=== PATIENT | male | born 1950 | race Caucasian/White ===

== ENCOUNTER 2020-10-05 14:28 | Inpatient (IN) ==
[2020-10-05] MEDS ORDERED: Aspirin 81 MG TAB.CHEW PO ONE (14:43)
[2020-10-05] MEDS: Nitroglycerin 0.4 MG TAB.SUBL SL SCH (15:03)
[2020-10-05 15:10] LABS: Prothrombin Time 11.4 Seconds (9.4-12.1)
[2020-10-05 15:14] LABS: Activated Partial Thrombo Time 18.4 Seconds (26.0-36.0)
[2020-10-05 15:23] LABS: BUN/Creatinine Ratio 14 (6-26); Blood Urea Nitrogen 18 mg/dL (8-23); Calcium 9.4 mg/dL (8.6-10.3); Carbon Dioxide 25 mEq/L (23-29); Chloride 105 mEq/L (98-107); Glucose 116 mg/dL (70-105); Osmolality,Calculated 287 (280-300); Potassium 4.4 mEq/L (3.5-5.1); Sodium 137 mEq/L (136-145); eGFR For African Americans > 60 (> 60); eGFR For Non-African Americans 56 (> 60)
[2020-10-05 15:24] LABS: Red Cell Distribution Width 13.3 % (11.5-14.5)
[2020-10-05 15:26] LABS: Basophils # 0.1 K/mcL (0.0-0.2); Eosinophils # 0.4 K/mcL (0.0-0.6); Eosinophils % 5.2 %; Hemoglobin 13.6 g/dL (12.9-16.9); Immature Granulocytes % 0.2 % (0-4); Immature Platelets 4.4 % (1.1-6.1); Lymphocytes # 2.1 K/mcL (0.6-4.6); Lymphocytes % 25.6 %; Mean Corpuscular HGB Conc 32.4 g/dL (31.6-35.5); Mean Corpuscular Hemoglobin 32.6 pg (28.0-33.3); Mean Corpuscular Volume 100.7 fL (83.0-100.0); Mean Platelet Volume 10.3 fL (9.4-12.4); Monocytes # 0.9 K/mcL (0.0-1.3); Monocytes % 11.2 %; Platelet Count 195 K/mcL (140-400); Red Blood Count 4.17 M/mcL (4.19-5.50); Segmented Neutrophils % 56.8 %
[2020-10-05 15:33] LABS: Neutrophils # 4.5 K/mcL (1.6-8.9)
[2020-10-05] MEDS ORDERED: *HR* Heparin 5,000 UNIT/ML VIAL IVP ONE (15:33)
[2020-10-05] MEDS ORDERED: *HR* Heparin 5,000 UNIT/ML VIAL IVP PRN ×2 (15:33)
[2020-10-05 15:42] LABS: Heparin anti-factor XA UFH < 0.04 IU/mL (0.30-0.70)
[2020-10-05] MEDS ORDERED: Perflutren Lipid Microsphere 1.3 ML in 0.9 % Sodium Chloride 8.7 ML IVP PRN (16:01)
[2020-10-05] MEDS: Heparin 25,000UNIT/250ML 1/2NS 25,000 UNIT/250 ML IV.SOLN IVC SCH (16:30)
[2020-10-05] MEDS ORDERED: Nitroglycerin 0.4 MG TAB.SUBL SL PRN (16:41)
[2020-10-05] MEDS ORDERED: Acetaminophen 325 MG TABLET PO PRN (16:44)
[2020-10-05] MEDS ORDERED: Ondansetron 4 MG/2 ML VIAL IVP PRN (16:44)
[2020-10-05] MEDS ORDERED: Naloxone 0.4 MG/ML INJ IVP PRN (16:44)
[2020-10-05] MEDS: Famotidine 20 MG/2 ML VIAL IVP SCH (19:25)
[2020-10-05 20:59] LABS: Adenovirus Not Detected (Not Detect); Bordetella Pertussis Not Detected (Not Detect); Chlamydophila pneumoniae Not Detected (Not Detect); Coronavirus 229E Not Detected (Not Detect); Coronavirus HKU1 Not Detected (Not Detect); Coronavirus NL63 Not Detected (Not Detect); Coronavirus OC43 Not Detected (Not Detect); Human Metapneumovirus Not Detected (Not Detect); Human Rhinovirus/Enterovirus Not Detected (Not Detect); Influenza A Subtype 2009 H1 Not Detected (Not Detect); Influenza B Not Detected (Not Detect); Mycoplasma pneumoniae Not Detected (Not Detect); Parainfluenza Virus 1 Not Detected (Not Detect); Parainfluenza Virus 2 Not Detected (Not Detect); Parainfluenza Virus 3 Not Detected (Not Detect); Parainfluenza Virus 4 Not Detected (Not Detect); Respiratory Syncytial Virus Not Detected (Not Detect); SARS-CoV-2 Not Detected (Not Detect)
[2020-10-06] MEDS: Nitroglycerin 0.4 MG TAB.SUBL SL SCH ×2 (01:02→01:03)
[2020-10-06 04:57] LABS: Hematocrit 39.4 % (37.5-50.1); Hemoglobin 13.2 g/dL (12.9-16.9); Mean Corpuscular HGB Conc 33.5 g/dL (31.6-35.5); Mean Corpuscular Hemoglobin 34.1 pg (28.0-33.3); Mean Corpuscular Volume 101.8 fL (83.0-100.0); Mean Platelet Volume 10.3 fL (9.4-12.4); Platelet Count 198 K/mcL (140-400); Prothrombin Time 11.9 Seconds (9.4-12.1); Red Blood Count 3.87 M/mcL (4.19-5.50); Red Cell Distribution Width 13.3 % (11.5-14.5); White Blood Count 6.9 K/mcL (4.3-11.1)
[2020-10-06 04:59] LABS: BUN/Creatinine Ratio 15 (6-26); Blood Urea Nitrogen 17 mg/dL (8-23); Calcium 8.8 mg/dL (8.6-10.3); Carbon Dioxide 24 mEq/L (23-29); Chloride 107 mEq/L (98-107); Chol/HDL Ratio 2.7 (0-4.9); Cholesterol 131 mg/dL (< 200); Glucose 84 mg/dL (70-105); HDL Cholesterol 49 mg/dL (40-59); LDL Cholesterol,Calculated 59 mg/dL (< 100); Magnesium 2.1 mg/dL (1.6-2.6); Osmolality,Calculated 289 (280-300); Potassium 4.2 mEq/L (3.5-5.1); Sodium 139 mEq/L (136-145); Triglycerides 115 mg/dL (< 150); eGFR For African Americans > 60 (> 60); eGFR For Non-African Americans > 60 (> 60)
[2020-10-06 05:12] LABS: Activated Partial Thrombo Time 57.8 Seconds (26.0-36.0)
[2020-10-06] MEDS: Famotidine 20 MG/2 ML VIAL IVP SCH ×2 (05:24→17:19)
[2020-10-06] MEDS: Aspirin Enteric Coated 81 MG Tablet PO SCH (08:08)
[2020-10-06] MEDS: Budesonide/Formoterol 160/4.5 1 PUFF INH IH SCH ×2 (10:50→22:30)
[2020-10-06] MEDS: Loratadine 10 MG TABLET PO SCH (11:22)
[2020-10-06] MEDS: Multivit/Ca/Min/Fe/FA 1 TAB TABLET PO SCH (11:22)
[2020-10-06] MEDS: BuPROPion XL (24 HR) 150 MG TABLET PO SCH (11:22)
[2020-10-06] MEDS: Cholecalciferol (D-3) 1,000 UNIT (25MCG) TABLET PO SCH (11:22)
[2020-10-06] MEDS: Heparin 25,000UNIT/250ML 1/2NS 25,000 UNIT/250 ML IV.SOLN IVC SCH (14:15)
[2020-10-07 04:28] LABS: Hematocrit 40.7 % (37.5-50.1); Hemoglobin 13.3 g/dL (12.9-16.9); Mean Corpuscular HGB Conc 32.7 g/dL (31.6-35.5); Mean Corpuscular Hemoglobin 32.8 pg (28.0-33.3); Mean Corpuscular Volume 100.5 fL (83.0-100.0); Mean Platelet Volume 10.3 fL (9.4-12.4); Platelet Count 202 K/mcL (140-400); Red Blood Count 4.05 M/mcL (4.19-5.50); Red Cell Distribution Width 13.2 % (11.5-14.5); White Blood Count 8.5 K/mcL (4.3-11.1)
[2020-10-07 04:41] LABS: BUN/Creatinine Ratio 15 (6-26); Blood Urea Nitrogen 18 mg/dL (8-23); Calcium 9.1 mg/dL (8.6-10.3); Carbon Dioxide 24 mEq/L (23-29); Chloride 108 mEq/L (98-107); Glucose 93 mg/dL (70-105); Osmolality,Calculated 292 (280-300); Potassium 4.1 mEq/L (3.5-5.1); Sodium 140 mEq/L (136-145); eGFR For African Americans > 60 (> 60); eGFR For Non-African Americans > 60 (> 60)
[2020-10-07] MEDS: Famotidine 20 MG/2 ML VIAL IVP SCH ×2 (06:19→19:11)
[2020-10-07] MEDS: Budesonide/Formoterol 160/4.5 1 PUFF INH IH SCH ×2 (07:41→20:39)
[2020-10-07] MEDS: Cholecalciferol (D-3) 1,000 UNIT (25MCG) TABLET PO SCH (08:21)
[2020-10-07] MEDS: Aspirin Enteric Coated 81 MG Tablet PO SCH (08:21)
[2020-10-07] MEDS: Multivit/Ca/Min/Fe/FA 1 TAB TABLET PO SCH (08:21)
[2020-10-07] MEDS: Loratadine 10 MG TABLET PO SCH (08:21)
[2020-10-07] MEDS: BuPROPion XL (24 HR) 150 MG TABLET PO SCH (08:21)
[2020-10-07] MEDS: Heparin 25,000UNIT/250ML 1/2NS 25,000 UNIT/250 ML IV.SOLN IVC SCH (12:15)
[2020-10-08 04:45] LABS: Basophils # 0.1 K/mcL (0.0-0.2); Eosinophils # 0.5 K/mcL (0.0-0.6); Eosinophils % 6.4 %; Hematocrit 42.1 % (37.5-50.1); Hemoglobin 13.9 g/dL (12.9-16.9); Immature Granulocytes % 0.1 % (0-4); Lymphocytes # 2.4 K/mcL (0.6-4.6); Lymphocytes % 31.2 %; Mean Corpuscular Hemoglobin 33.3 pg (28.0-33.3); Mean Corpuscular Volume 100.7 fL (83.0-100.0); Mean Platelet Volume 10.2 fL (9.4-12.4); Monocytes # 0.8 K/mcL (0.0-1.3); Monocytes % 10.7 %; Platelet Count 210 K/mcL (140-400); Red Blood Count 4.18 M/mcL (4.19-5.50); Red Cell Distribution Width 13.3 % (11.5-14.5); Segmented Neutrophils % 50.6 %; White Blood Count 7.8 K/mcL (4.3-11.1)
[2020-10-08 05:04] LABS: BUN/Creatinine Ratio 14 (6-26); Blood Urea Nitrogen 18 mg/dL (8-23); Calcium 9.6 mg/dL (8.6-10.3); Carbon Dioxide 23 mEq/L (23-29); Chloride 107 mEq/L (98-107); Glucose 103 mg/dL (70-105); Osmolality,Calculated 290 (280-300); Sodium 139 mEq/L (136-145); eGFR For African Americans > 60 (> 60); eGFR For Non-African Americans 56 (> 60)
[2020-10-08] MEDS: Famotidine 20 MG/2 ML VIAL IVP SCH (05:51)
[2020-10-08] MEDS: Cholecalciferol (D-3) 1,000 UNIT (25MCG) TABLET PO SCH (08:14)
[2020-10-08] MEDS: BuPROPion XL (24 HR) 150 MG TABLET PO SCH (08:14)
[2020-10-08] MEDS: Multivit/Ca/Min/Fe/FA 1 TAB TABLET PO SCH (08:14)
[2020-10-08] MEDS: Loratadine 10 MG TABLET PO SCH (08:14)
[2020-10-08] MEDS: Aspirin Enteric Coated 81 MG Tablet PO SCH (08:14)
[2020-10-08] MEDS: Budesonide/Formoterol 160/4.5 1 PUFF INH IH SCH ×2 (08:26→21:45)
[2020-10-08] MEDS: Heparin 25,000UNIT/250ML 1/2NS 25,000 UNIT/250 ML IV.SOLN IVC SCH (10:41)
[2020-10-08] MEDS ORDERED: 0.9 % Sodium Chloride 1,000 ML ONE ×3 (12:50→16:07)
[2020-10-08] MEDS ORDERED: ISOVUE-370 200 ML INFUS..BTL ONE ×2 (12:50→14:23)
[2020-10-08] MEDS ORDERED: *HR* Heparin 10,000 UNIT/10 ML VIAL ONE (12:50)
[2020-10-08] MEDS ORDERED: Heparin 1,000 UNITS/500 mL 500 ML ONE (12:50)
[2020-10-08] MEDS ORDERED: Nitroglycerin 1,000 MCG/10 ML VIAL IV ONE (12:50)
[2020-10-08] MEDS ORDERED: *HR* Midazolam HCl 2 MG/2 ML VIAL ONE (13:39)
[2020-10-08] MEDS ORDERED: *HR* FentaNYL (PF) 100 MCG/2 ML VIAL ONE (13:40)
[2020-10-08] MEDS ORDERED: Ondansetron 4 MG/2 ML VIAL ONE (13:43)
[2020-10-08] MEDS ORDERED: Tirofiban 12.5 MG/250ML 12.5 MG/250 ML BAG ONE (14:00)
[2020-10-08] MEDS ORDERED: *HR* Ticagrelor 90 MG TABLET ONE (14:35)
[2020-10-08] MEDS ORDERED: Tirofiban 12.5 MG/250ML 12.5 MG/250 ML BAG IVC SCH (14:45)
[2020-10-08] MEDS ORDERED: 0.9 % Sodium Chloride 500 ML IVC ONE (20:28)
[2020-10-08] MEDS: *HR* Ticagrelor 90 MG TABLET PO SCH (20:48)
[2020-10-09] MEDS: Budesonide/Formoterol 160/4.5 1 PUFF INH IH SCH (07:54)
[2020-10-09 08:08] VITALS: BP 107/72
[2020-10-09 08:09] LABS: Hematocrit 37.6 % (37.5-50.1)
[2020-10-09 08:11] LABS: Hemoglobin 12.3 g/dL (12.9-16.9); Mean Corpuscular HGB Conc 32.7 g/dL (31.6-35.5); Mean Corpuscular Hemoglobin 33.5 pg (28.0-33.3); Mean Corpuscular Volume 102.5 fL (83.0-100.0); Mean Platelet Volume 10.3 fL (9.4-12.4); Platelet Count 184 K/mcL (140-400); Red Blood Count 3.67 M/mcL (4.19-5.50); Red Cell Distribution Width 13.8 % (11.5-14.5); White Blood Count 9.6 K/mcL (4.3-11.1)
[2020-10-09] MEDS: Aspirin Enteric Coated 81 MG Tablet PO SCH (08:24)
[2020-10-09] MEDS: Multivit/Ca/Min/Fe/FA 1 TAB TABLET PO SCH (08:24)
[2020-10-09] MEDS: Cholecalciferol (D-3) 1,000 UNIT (25MCG) TABLET PO SCH (08:24)
[2020-10-09] MEDS: *HR* Ticagrelor 90 MG TABLET PO SCH (08:24)
[2020-10-09] MEDS: Loratadine 10 MG TABLET PO SCH (08:24)
[2020-10-09] MEDS: BuPROPion XL (24 HR) 150 MG TABLET PO SCH (08:24)
[2020-10-09 08:28] LABS: BUN/Creatinine Ratio 13 (6-26); Blood Urea Nitrogen 16 mg/dL (8-23); Carbon Dioxide 23 mEq/L (23-29); Chloride 111 mEq/L (98-107); Glucose 89 mg/dL (70-105); Osmolality,Calculated 289 (280-300); Potassium 4.5 mEq/L (3.5-5.1); Sodium 139 mEq/L (136-145); eGFR For African Americans > 60 (> 60); eGFR For Non-African Americans 58 (> 60)
[2020-10-09 09:19] LABS: Basophils # 0.2 K/mcL (0.0-0.2); Eosinophils # 0.2 K/mcL (0.0-0.6); Lymphocytes # 1.3 K/mcL (0.6-4.6); Neutrophils # 6.9 K/mcL (1.6-8.9)
[2020-10-09 09:20] LABS: Platelet Estimate Normal (Normal); Reactive Lymphocytes Present (Not Present); Toxic Vacuolation Present (Not Present)
[2020-10-09] MEDS ORDERED: *HR* Heparin 5,000 UNIT/ML VIAL SQ SCH (14:00)
== END 2020-10-09 10:15 | disposition home or self-care (01) | DRG 247 ==
LOC: EMEROOARM 14:28 → 2ANU 14:28 → SUATTDRO 16:11 → 2ANU 17:09
PROVIDERS: ADMIT Student in an Organized Health Care Education/Training Program; ATTEND Family Medicine

== ENCOUNTER 2020-10-29 13:56 | Observation (INO) ==
[2020-10-29 14:48] LABS: Basophils # 0.1 K/mcL (0.0-0.2); Eosinophils # 0.6 K/mcL (0.0-0.6); Eosinophils % 5.3 %; Hematocrit 42.8 % (37.5-50.1); Hemoglobin 14.4 g/dL (12.9-16.9); Immature Granulocytes % 0.3 % (0-4); Lymphocytes # 2.4 K/mcL (0.6-4.6); Lymphocytes % 22.8 %; Mean Corpuscular HGB Conc 33.6 g/dL (31.6-35.5); Mean Corpuscular Hemoglobin 33.5 pg (28.0-33.3); Mean Corpuscular Volume 99.5 fL (83.0-100.0); Mean Platelet Volume 9.8 fL (9.4-12.4); Monocytes % 9.4 %; Neutrophils # 6.3 K/mcL (1.6-8.9); Nucleated Red Blood Cells 0.2 /100 WBC (0); Platelet Count 262 K/mcL (140-400); Red Cell Distribution Width 13.3 % (11.5-14.5); Segmented Neutrophils % 61.2 %; White Blood Count 10.3 K/mcL (4.3-11.1)
[2020-10-29 15:10] LABS: BUN/Creatinine Ratio 11 (6-26); Blood Urea Nitrogen 17 mg/dL (8-23); Calcium 10.3 mg/dL (8.6-10.3); Carbon Dioxide 22 mEq/L (23-29); Chloride 106 mEq/L (98-107); Glucose 88 mg/dL (70-105); Osmolality,Calculated 289 (280-300); Potassium 4.1 mEq/L (3.5-5.1); Sodium 139 mEq/L (136-145); Troponin I < 0.03 ng/mL (< 0.04); eGFR For African Americans 56 (> 60); eGFR For Non-African Americans 46 (> 60)
[2020-10-29] MEDS ORDERED: Nitroglycerin 0.4 MG TAB.SUBL SL PRN (17:58)
[2020-10-29] MEDS ORDERED: Naloxone 0.4 MG/ML INJ IVP PRN (18:04)
[2020-10-29] MEDS ORDERED: Ondansetron 4 MG/2 ML VIAL IVP PRN (18:04)
[2020-10-29] MEDS ORDERED: Acetaminophen 325 MG TABLET PO PRN (18:04)
[2020-10-29] MEDS: Budesonide/Formoterol 160/4.5 1 PUFF INH IH SCH (19:49)
[2020-10-29] MEDS: *HR* Ticagrelor 90 MG TABLET PO SCH (20:20)
[2020-10-30 01:27] LABS: Basophils # 0.1 K/mcL (0.0-0.2); Basophils % 1.1 %; Eosinophils # 0.6 K/mcL (0.0-0.6); Hematocrit 40.7 % (37.5-50.1); Hemoglobin 13.7 g/dL (12.9-16.9); Immature Granulocytes % 0.2 % (0-4); Lymphocytes # 2.5 K/mcL (0.6-4.6); Lymphocytes % 28.1 %; Mean Corpuscular HGB Conc 33.7 g/dL (31.6-35.5); Mean Corpuscular Hemoglobin 33.9 pg (28.0-33.3); Mean Corpuscular Volume 100.7 fL (83.0-100.0); Mean Platelet Volume 9.7 fL (9.4-12.4); Monocytes # 0.9 K/mcL (0.0-1.3); Monocytes % 10.5 %; Neutrophils # 4.7 K/mcL (1.6-8.9); Nucleated Red Blood Cells 0.2 /100 WBC (0); Platelet Count 235 K/mcL (140-400); Red Blood Count 4.04 M/mcL (4.19-5.50); Red Cell Distribution Width 13.3 % (11.5-14.5); Segmented Neutrophils % 53.1 %; White Blood Count 8.9 K/mcL (4.3-11.1)
[2020-10-30 01:31] LABS: INR 1.1
[2020-10-30 01:47] LABS: Albumin 4.2 g/dL (3.5-5.7); Albumin/Globulin Ratio 1.5 (1.1-2.2); Bilirubin,Total 0.9 mg/dL (0.3-1.0); Calcium 10.3 mg/dL (8.6-10.3); Globulin 2.8 g/dL (2.4-3.5); Potassium 4.2 mEq/L (3.5-5.1)
[2020-10-30] MEDS: Budesonide/Formoterol 160/4.5 1 PUFF INH IH SCH ×2 (07:51→19:24)
[2020-10-30] MEDS: Cholecalciferol (D-3) 1,000 UNIT (25MCG) TABLET PO SCH (08:16)
[2020-10-30] MEDS: *HR* Ticagrelor 90 MG TABLET PO SCH ×2 (08:17→20:18)
[2020-10-30] MEDS: Loratadine 10 MG TABLET PO SCH (08:17)
[2020-10-30] MEDS: BuPROPion XL (24 HR) 150 MG TABLET PO SCH (08:17)
[2020-10-30] MEDS: Finasteride 5 MG TABLET PO SCH (08:19)
[2020-10-30] MEDS: Aspirin Enteric Coated 81 MG Tablet PO SCH (08:19)
[2020-10-30] MEDS: 0.9 % Sodium Chloride 1,000 ML IVC SCH (09:38)
[2020-10-30] MEDS: Multivit/Ca/Min/Fe/FA 1 TAB TABLET PO SCH (09:46)
[2020-10-30] MEDS: *HR* Heparin 5,000 UNIT/ML VIAL SQ SCH (17:52)
[2020-10-31] MEDS: 0.9 % Sodium Chloride 1,000 ML IVC SCH (04:05)
[2020-10-31] MEDS: *HR* Heparin 5,000 UNIT/ML VIAL SQ SCH (05:54)
[2020-10-31 06:06] LABS: Hematocrit 39.2 % (37.5-50.1); Hemoglobin 12.6 g/dL (12.9-16.9); Mean Corpuscular HGB Conc 32.1 g/dL (31.6-35.5); Mean Corpuscular Hemoglobin 33.2 pg (28.0-33.3); Mean Corpuscular Volume 103.4 fL (83.0-100.0); Mean Platelet Volume 10.2 fL (9.4-12.4); Platelet Count 203 K/mcL (140-400); Red Blood Count 3.79 M/mcL (4.19-5.50); Red Cell Distribution Width 13.3 % (11.5-14.5); White Blood Count 6.8 K/mcL (4.3-11.1)
[2020-10-31 06:28] LABS: Albumin 3.9 g/dL (3.5-5.7); Albumin/Globulin Ratio 1.6 (1.1-2.2); Bilirubin,Total 0.7 mg/dL (0.3-1.0); Calcium 9.5 mg/dL (8.6-10.3); Globulin 2.5 g/dL (2.4-3.5); Potassium 4.2 mEq/L (3.5-5.1); Total Protein 6.4 g/dL (6.4-8.9)
[2020-10-31] MEDS: Budesonide/Formoterol 160/4.5 1 PUFF INH IH SCH (07:42)
[2020-10-31] MEDS: BuPROPion XL (24 HR) 150 MG TABLET PO SCH (08:19)
[2020-10-31] MEDS: Multivit/Ca/Min/Fe/FA 1 TAB TABLET PO SCH (08:19)
[2020-10-31] MEDS: Cholecalciferol (D-3) 1,000 UNIT (25MCG) TABLET PO SCH (08:19)
[2020-10-31] MEDS: Aspirin Enteric Coated 81 MG Tablet PO SCH (08:19)
[2020-10-31] MEDS: Finasteride 5 MG TABLET PO SCH (08:19)
[2020-10-31] MEDS: Loratadine 10 MG TABLET PO SCH (08:20)
[2020-10-31 14:45] LABS: BUN/Creatinine Ratio 14 (6-26); Blood Urea Nitrogen 19 mg/dL (8-23); Calcium 9.1 mg/dL (8.6-10.3); Carbon Dioxide 23 mEq/L (23-29); Chloride 110 mEq/L (98-107); Glucose 77 mg/dL (70-105); Osmolality,Calculated 293 (280-300); Potassium 3.9 mEq/L (3.5-5.1); Sodium 141 mEq/L (136-145); eGFR For African Americans > 60 (> 60); eGFR For Non-African Americans 52 (> 60)
[2020-10-31 15:25] VITALS: BP 122/69
== END 2020-10-31 16:29 | disposition home or self-care (01) ==
LOC: EMEROOARM 13:56 → 3BNU 13:56 → SUATTDRO 17:27 → 3BNU 17:55
PROVIDERS: ADMIT Internal Medicine; ATTEND Registered Nurse

== ENCOUNTER 2021-03-25 12:35 | Inpatient (IN) ==
[2021-03-25 15:26] LABS: Basophils # 0.1 K/mcL (0.0-0.2); Basophils % 0.8 %; Eosinophils # 0.3 K/mcL (0.0-0.6); Eosinophils % 3.8 %; Hematocrit 43.2 % (37.5-50.1); Hemoglobin 14.3 g/dL (12.9-16.9); Immature Granulocytes % 0.1 % (0-4); Lymphocytes # 1.8 K/mcL (0.6-4.6); Lymphocytes % 23.8 %; Mean Corpuscular HGB Conc 33.1 g/dL (31.6-35.5); Mean Corpuscular Hemoglobin 31.8 pg (28.0-33.3); Mean Platelet Volume 10.1 fL (9.4-12.4); Monocytes # 0.9 K/mcL (0.0-1.3); Monocytes % 11.2 %; Neutrophils # 4.7 K/mcL (1.6-8.9); Platelet Count 241 K/mcL (140-400); Red Cell Distribution Width 13.7 % (11.5-14.5); Segmented Neutrophils % 60.3 %; White Blood Count 7.7 K/mcL (4.3-11.1)
[2021-03-25 15:35] LABS: ABG Base Excess 3 mEq/L (-2 to 3); ABG HCO3 27 mEq/L (21-27); ABG Oxygen Saturation 94 % (95-98); ABG PCO2 39 mmHg (35-45); ABG PH 7.46 pH Units (7.32-7.45); ABG PO2 66 mmHg (85-104); ABG TCO2 29 mEq/L (20-26)
[2021-03-25 16:01] LABS: BUN/Creatinine Ratio 13 (6-26); Blood Urea Nitrogen 17 mg/dL (8-23); Calcium 11.8 mg/dL (8.6-10.3); Carbon Dioxide 27 mEq/L (23-29); Chloride 104 mEq/L (98-107); Glucose 99 mg/dL (70-105); Osmolality,Calculated 290 (280-300); Potassium 4.4 mEq/L (3.5-5.1); Sodium 139 mEq/L (136-145); Troponin I < 0.03 ng/mL (< 0.04); eGFR For African Americans > 60 (> 60); eGFR For Non-African Americans 57 (> 60)
[2021-03-25 16:25] LABS: INR 1.1; Prothrombin Time 12.4 Seconds (9.4-12.1)
[2021-03-25 16:27] LABS: Activated Partial Thrombo Time 29.5 Seconds (26.0-36.0)
[2021-03-25 16:46] LABS: Bilirubin,Urine Negative (Negative); Blood,Urine Negative (Negative); Clarity,Urine Ex.Turbid (Clear); Color,Urine Yellow (Yellow); Glucose,Urine (UA) Normal (Normal); Ketones,Urine Negative (Negative); Leukocyte Esterase,Urine Negative (Negative); Nitrite,Urine Negative (Negative); Protein,Urine Trace mg/dL (Neg-Trace); Specific Gravity,Urine 1.015 (1.010-1.025); Urobilinogen,Urine Normal (Normal)
[2021-03-25 16:52] LABS: Amorphous Sediment,Urine Many per hpf (None-Few); WBC,Urine 0-3 per hpf (0-3)
[2021-03-25 16:53] LABS: Granular Casts,Urine Few per lpf (None Seen)
[2021-03-25] MEDS ORDERED: Ondansetron 4 MG/2 ML VIAL IVP PRN (17:16)
[2021-03-25] MEDS ORDERED: Naloxone 0.4 MG/ML INJ IVP PRN (17:16)
[2021-03-25] MEDS ORDERED: Aspirin 81 MG TAB.CHEW PO STA ×3 (17:39→19:50)
[2021-03-25] MEDS: Budesonide/Formoterol 160/4.5 1 PUFF INH IH SCH (19:55)
[2021-03-26 02:48] LABS: Basophils # 0.1 K/mcL (0.0-0.2); Eosinophils # 0.4 K/mcL (0.0-0.6); Eosinophils % 5.5 %; Hematocrit 45.2 % (37.5-50.1); Hemoglobin 14.5 g/dL (12.9-16.9); Immature Granulocytes % 0.3 % (0-4); Lymphocytes # 2.2 K/mcL (0.6-4.6); Mean Corpuscular HGB Conc 32.1 g/dL (31.6-35.5); Mean Corpuscular Hemoglobin 31.7 pg (28.0-33.3); Mean Corpuscular Volume 98.7 fL (83.0-100.0); Mean Platelet Volume 9.8 fL (9.4-12.4); Monocytes # 0.8 K/mcL (0.0-1.3); Monocytes % 11.8 %; Neutrophils # 3.4 K/mcL (1.6-8.9); Platelet Count 216 K/mcL (140-400); Red Blood Count 4.58 M/mcL (4.19-5.50); Red Cell Distribution Width 13.9 % (11.5-14.5); Segmented Neutrophils % 49.4 %; White Blood Count 6.9 K/mcL (4.3-11.1)
[2021-03-26 02:57] LABS: Calcium 11.4 mg/dL (8.6-10.3); Magnesium 2.2 mg/dL (1.6-2.6); Potassium 4.3 mEq/L (3.5-5.1)
[2021-03-26] MEDS ORDERED: Regadenoson 0.4 MG/5 ML SYRINGE IVP ONE (07:16)
[2021-03-26] MEDS: Budesonide/Formoterol 160/4.5 1 PUFF INH IH SCH ×2 (07:41→19:41)
[2021-03-26] MEDS: Cholecalciferol (D-3) 1,000 UNIT (25MCG) TABLET PO SCH (10:54)
[2021-03-26] MEDS: BuPROPion XL (24 HR) 150 MG TABLET PO SCH (10:54)
[2021-03-26] MEDS: Finasteride 5 MG TABLET PO SCH (10:54)
[2021-03-26] MEDS: Loratadine 10 MG TABLET PO SCH (10:54)
[2021-03-26] MEDS: Multivit/Ca/Min/Fe/FA 1 TAB TABLET PO SCH (10:54)
[2021-03-26] MEDS: Aspirin Enteric Coated 81 MG Tablet PO SCH (10:54)
[2021-03-26] MEDS: Isosorbide MONOnitrate (24 HR) 30 MG TAB.ER.24H PO SCH (14:43)
[2021-03-27 06:55] LABS: Basophils % 0.5 %; Eosinophils # 0.3 K/mcL (0.0-0.6); Eosinophils % 4.1 %; Hematocrit 41.8 % (37.5-50.1); Hemoglobin 13.7 g/dL (12.9-16.9); Immature Granulocytes % 0.1 % (0-4); Lymphocytes # 2.1 K/mcL (0.6-4.6); Lymphocytes % 26.2 %; Mean Corpuscular HGB Conc 32.8 g/dL (31.6-35.5); Mean Corpuscular Volume 97.7 fL (83.0-100.0); Mean Platelet Volume 10.3 fL (9.4-12.4); Monocytes # 0.9 K/mcL (0.0-1.3); Monocytes % 11.8 %; Neutrophils # 4.5 K/mcL (1.6-8.9); Platelet Count 214 K/mcL (140-400); Red Blood Count 4.28 M/mcL (4.19-5.50); Red Cell Distribution Width 13.9 % (11.5-14.5); Segmented Neutrophils % 57.3 %; White Blood Count 7.9 K/mcL (4.3-11.1)
[2021-03-27 07:18] LABS: Calcium 9.8 mg/dL (8.6-10.3); Potassium 3.9 mEq/L (3.5-5.1)
[2021-03-27] MEDS: Budesonide/Formoterol 160/4.5 1 PUFF INH IH SCH ×2 (07:49→20:08)
[2021-03-27] MEDS: Cholecalciferol (D-3) 1,000 UNIT (25MCG) TABLET PO SCH (08:17)
[2021-03-27] MEDS: Finasteride 5 MG TABLET PO SCH (08:17)
[2021-03-27] MEDS: Aspirin Enteric Coated 81 MG Tablet PO SCH (08:17)
[2021-03-27] MEDS: Multivit/Ca/Min/Fe/FA 1 TAB TABLET PO SCH (08:17)
[2021-03-27] MEDS: Loratadine 10 MG TABLET PO SCH (08:18)
[2021-03-27] MEDS: BuPROPion XL (24 HR) 150 MG TABLET PO SCH (08:18)
[2021-03-27] MEDS: Isosorbide MONOnitrate (24 HR) 30 MG TAB.ER.24H PO SCH (08:18)
[2021-03-27] MEDS: 0.9 % Sodium Chloride 1,000 ML IVC SCH ×2 (09:11→22:37)
[2021-03-27 13:51] LABS: Calcium 9.3 mg/dL (8.6-10.3); Potassium 4.4 mEq/L (3.5-5.1)
[2021-03-28 06:40] LABS: Calcium 8.7 mg/dL (8.6-10.3); Phosphorous 2.4 mg/dL (2.7-4.5); Potassium 4.2 mEq/L (3.5-5.1)
[2021-03-28] MEDS: Budesonide/Formoterol 160/4.5 1 PUFF INH IH SCH (07:30)
[2021-03-28 07:45] VITALS: BP 104/66; PULSE 64; TEMP 98.2; O2SAT 92
[2021-03-28] MEDS: Multivit/Ca/Min/Fe/FA 1 TAB TABLET PO SCH (07:56)
[2021-03-28] MEDS: Cholecalciferol (D-3) 1,000 UNIT (25MCG) TABLET PO SCH (07:56)
[2021-03-28] MEDS: Finasteride 5 MG TABLET PO SCH (07:56)
[2021-03-28] MEDS: BuPROPion XL (24 HR) 150 MG TABLET PO SCH (07:56)
[2021-03-28] MEDS: Loratadine 10 MG TABLET PO SCH (07:57)
[2021-03-28] MEDS: Aspirin Enteric Coated 81 MG Tablet PO SCH (07:57)
[2021-03-28] MEDS: Isosorbide MONOnitrate (24 HR) 30 MG TAB.ER.24H PO SCH (08:12)
== END 2021-03-28 09:55 | disposition home or self-care (01) | DRG 303 ==
LOC: 3BNU 12:35 → EMEROOARM 12:35 → SUATTDRO 17:33 → 3BNU 18:01 → SUATTDRO 03-26 16:30
PROVIDERS: ADMIT Pharmacist; ATTEND Internal Medicine

== ENCOUNTER 2021-04-10 08:56 | Inpatient (IN) ==
[2021-04-10] MEDS ORDERED: Aspirin 81 MG TAB.CHEW PO ONE (09:06)
[2021-04-10] MEDS ORDERED: Pantoprazole 40 MG VIAL IVP ONE ×2 (09:06→13:21)
[2021-04-10] MEDS ORDERED: 0.9 % Sodium Chloride 500 ML IVC ONE (09:06)
[2021-04-10 10:24] LABS: Basophils # 0.1 K/mcL (0.0-0.2); Basophils % 0.8 %; Eosinophils # 0.3 K/mcL (0.0-0.6); Eosinophils % 2.9 %; Hematocrit 29.4 % (37.5-50.1); Hemoglobin 9.2 g/dL (12.9-16.9); Immature Granulocytes % 0.5 % (0-4); Lymphocytes # 2.1 K/mcL (0.6-4.6); Lymphocytes % 19.5 %; Mean Corpuscular HGB Conc 31.3 g/dL (31.6-35.5); Mean Corpuscular Hemoglobin 31.7 pg (28.0-33.3); Mean Corpuscular Volume 101.4 fL (83.0-100.0); Mean Platelet Volume 10.8 fL (9.4-12.4); Monocytes # 0.9 K/mcL (0.0-1.3); Monocytes % 8.3 %; Neutrophils # 7.3 K/mcL (1.6-8.9); Nucleated Red Blood Cells 0.3 /100 WBC (0); Platelet Count 178 K/mcL (140-400); Red Cell Distribution Width 13.2 % (11.5-14.5); White Blood Count 10.8 K/mcL (4.3-11.1)
[2021-04-10 10:24] LABS: Adenovirus Not Detected (Not Detect); Coronavirus 229E Not Detected (Not Detect); Coronavirus HKU1 Not Detected (Not Detect); Coronavirus NL63 Not Detected (Not Detect); Coronavirus OC43 Not Detected (Not Detect); Human Metapneumovirus Not Detected (Not Detect); Human Rhinovirus/Enterovirus Not Detected (Not Detect); Influenza A Subtype 2009 H1 Not Detected (Not Detect); Influenza B Not Detected (Not Detect); Parainfluenza Virus 1 Not Detected (Not Detect); Parainfluenza Virus 2 Not Detected (Not Detect); Parainfluenza Virus 3 Not Detected (Not Detect); Parainfluenza Virus 4 Not Detected (Not Detect); SARS-CoV-2 Not Detected (Not Detect)
[2021-04-10 10:25] LABS: Bordetella Pertussis Not Detected (Not Detect); Chlamydophila pneumoniae Not Detected (Not Detect); Mycoplasma pneumoniae Not Detected (Not Detect); Respiratory Syncytial Virus Not Detected (Not Detect)
[2021-04-10] MEDS ORDERED: Simethicone 80 MG TAB.CHEW PO PRN (10:29)
[2021-04-10 10:31] LABS: INR 1.2; Prothrombin Time 13.8 Seconds (9.4-12.1)
[2021-04-10 10:34] LABS: Activated Partial Thrombo Time 27.6 Seconds (26.0-36.0)
[2021-04-10 10:46] LABS: Alanine Aminotransferase 21 Units/L (7-52); Albumin 3.3 g/dL (3.5-5.7); Albumin/Globulin Ratio 1.7 (1.1-2.2); Aspartate Amino Transferase 15 Units/L (13-39); BUN/Creatinine Ratio 40 (6-26); Bilirubin,Direct 0.1 mg/dL (0.0-0.2); Bilirubin,Indirect 0.6 mg/dL (0.0-1.0); Bilirubin,Total 0.7 mg/dL (0.3-1.0); Blood Urea Nitrogen 60 mg/dL (8-23); Calcium 8.1 mg/dL (8.6-10.3); Carbon Dioxide 23 mEq/L (23-29); Chloride 114 mEq/L (98-107); Glucose 89 mg/dL (70-105); Lipase 29 Units/L (11-82); Osmolality,Calculated 308 (280-300); Potassium 5.8 mEq/L (3.5-5.1); Sodium 141 mEq/L (136-145); Total Protein 5.3 g/dL (6.4-8.9); Troponin I < 0.03 ng/mL (< 0.04); eGFR For African Americans 56 (> 60); eGFR For Non-African Americans 46 (> 60)
[2021-04-10 11:27] LABS: Alkaline Phosphatase 57 Units/L (34-104)
[2021-04-10] MEDS ORDERED: Acetaminophen 325 MG TABLET PO PRN (12:17)
[2021-04-10] MEDS ORDERED: Naloxone 0.4 MG/ML INJ IVP PRN (12:17)
[2021-04-10] MEDS ORDERED: Ondansetron 4 MG/2 ML VIAL IVP PRN (12:22)
[2021-04-10] MEDS ORDERED: Morphine Sulfate 2 MG/ML SYRINGE IVP PRN (12:22)
[2021-04-10] MEDS ORDERED: *HR* HYDROmorphone (PF) 1 MG/ML SYRINGE IVP PRN (12:59)
[2021-04-10] MEDS ORDERED: 0.9 % Sodium Chloride 250 ML ONE ×3 (13:02→16:47)
[2021-04-10] MEDS ORDERED: 0.9 % Sodium Chloride 1,000 ML ONE (13:16)
[2021-04-10] MEDS ORDERED: Pantoprazole 40 MG VIAL ONE (13:22)
[2021-04-10] MEDS ORDERED: *HR* Vasopressin 20 UNIT/ML VIAL ONE (13:33)
[2021-04-10] MEDS ORDERED: *HR* Propofol 200 MG/20 ML VIAL IVP ONE ×2 (14:10→14:11)
[2021-04-10] MEDS ORDERED: *HR* FentaNYL (PF) 100 MCG/2 ML VIAL ONE (14:10)
[2021-04-10] MEDS ORDERED: *HR* Rocuronium Bromide 50 MG/5 ML VIAL ONE (14:11)
[2021-04-10] MEDS ORDERED: Lidocaine -MPF 2% 2 ML VIAL ONE (14:11)
[2021-04-10] MEDS ORDERED: Ondansetron 4 MG/2 ML VIAL ONE (14:11)
[2021-04-10] MEDS ORDERED: 0.9 % Sodium Chloride 1,000 ML IV ONE (14:14)
[2021-04-10] MEDS ORDERED: Sugammadex Sodium 200 MG/2 ML VIAL IV ONE (14:37)
[2021-04-10] MEDS: Pantoprazole 40 MG in 0.9 % Sodium Chloride Mini Bag 100 ML IVC SCH ×3 (15:06→23:48)
[2021-04-10 16:32] LABS: VBG Ionized Calcium 1.17 mmol/L (1.15-1.35)
[2021-04-10 16:36] LABS: Hematocrit 27.4 % (37.5-50.1); Hemoglobin 8.9 g/dL (12.9-16.9)
[2021-04-10 16:59] LABS: Albumin 3.2 g/dL (3.5-5.7); Bilirubin,Total 0.6 mg/dL (0.3-1.0); Calcium 7.4 mg/dL (8.6-10.3); Magnesium 1.8 mg/dL (1.6-2.6); Phosphorous 2.7 mg/dL (2.7-4.5); Potassium 5.6 mEq/L (3.5-5.1); Total Protein 4.8 g/dL (6.4-8.9)
[2021-04-10 17:00] LABS: Globulin 1.6 g/dL (2.4-3.5)
[2021-04-10] MEDS ORDERED: Calcium Gluconate 1gm/50mL 1 GM/50 ML BAG IVPB PRN (17:31)
[2021-04-10 18:44] LABS: BUN/Creatinine Ratio 43 (6-26); Blood Urea Nitrogen 62 mg/dL (8-23); Calcium 7.5 mg/dL (8.6-10.3); Carbon Dioxide 22 mEq/L (23-29); Chloride 114 mEq/L (98-107); Glucose 102 mg/dL (70-105); Osmolality,Calculated 312 (280-300); Potassium 5.9 mEq/L (3.5-5.1); Sodium 142 mEq/L (136-145); eGFR For African Americans 58 (> 60); eGFR For Non-African Americans 48 (> 60)
[2021-04-10 18:46] LABS: Troponin I < 0.03 ng/mL (< 0.04)
[2021-04-10] MEDS ORDERED: Insulin Human Regular 10 UNIT in 0.9 % Sodium Chloride 10 ML IV ONE (19:13)
[2021-04-10] MEDS ORDERED: *HR* Dextrose 50 % in Water (Vial) 50 ML VIAL IVP ONE (19:13)
[2021-04-10 21:52] LABS: Basophils % 0.1 %; Hemoglobin 9.4 g/dL (12.9-16.9); Immature Granulocytes % 0.6 % (0-4); Lymphocytes # 0.8 K/mcL (0.6-4.6); Lymphocytes % 8.6 %; Mean Corpuscular HGB Conc 33.6 g/dL (31.6-35.5); Mean Corpuscular Hemoglobin 31.1 pg (28.0-33.3); Mean Platelet Volume 10.4 fL (9.4-12.4); Monocytes # 0.2 K/mcL (0.0-1.3); Monocytes % 2.2 %; Neutrophils # 7.9 K/mcL (1.6-8.9); Platelet Count 132 K/mcL (140-400); Red Blood Count 3.02 M/mcL (4.19-5.50); Red Cell Distribution Width 15.3 % (11.5-14.5); Segmented Neutrophils % 88.5 %
[2021-04-10 21:53] LABS: Mean Corpuscular Volume 92.7 fL (83.0-100.0)
[2021-04-10 22:12] LABS: BUN/Creatinine Ratio 41 (6-26); Blood Urea Nitrogen 58 mg/dL (8-23); Calcium 7.9 mg/dL (8.6-10.3); Carbon Dioxide 22 mEq/L (23-29); Chloride 114 mEq/L (98-107); Glucose 116 mg/dL (70-105); Osmolality,Calculated 311 (280-300); Potassium 4.7 mEq/L (3.5-5.1); Sodium 142 mEq/L (136-145); eGFR For African Americans 59 (> 60); eGFR For Non-African Americans 49 (> 60)
[2021-04-10 22:13] LABS: Troponin I < 0.03 ng/mL (< 0.04)
[2021-04-11 04:05] LABS: Hematocrit 26.4 % (37.5-50.1); Immature Granulocytes % 0.4 % (0-4); Lymphocytes % 11.6 %; Mean Corpuscular HGB Conc 34.1 g/dL (31.6-35.5); Mean Corpuscular Hemoglobin 31.4 pg (28.0-33.3); Mean Platelet Volume 10.6 fL (9.4-12.4); Monocytes # 0.6 K/mcL (0.0-1.3); Monocytes % 6.6 %; Neutrophils # 6.8 K/mcL (1.6-8.9); Platelet Count 139 K/mcL (140-400); Red Blood Count 2.87 M/mcL (4.19-5.50); Red Cell Distribution Width 15.6 % (11.5-14.5); Segmented Neutrophils % 81.4 %; White Blood Count 8.3 K/mcL (4.3-11.1)
[2021-04-11 04:11] LABS: INR 1.2; Prothrombin Time 13.5 Seconds (9.4-12.1)
[2021-04-11 04:14] LABS: VBG Ionized Calcium 1.15 mmol/L (1.15-1.35)
[2021-04-11 04:25] LABS: Alanine Aminotransferase 17 Units/L (7-52); Albumin 3.6 g/dL (3.5-5.7); Albumin/Globulin Ratio 1.7 (1.1-2.2); Alkaline Phosphatase 49 Units/L (34-104); Aspartate Amino Transferase 15 Units/L (13-39); BUN/Creatinine Ratio 35 (6-26); Bilirubin,Direct 0.1 mg/dL (0.0-0.2); Bilirubin,Indirect 0.4 mg/dL (0.0-1.0); Bilirubin,Total 0.5 mg/dL (0.3-1.0); Blood Urea Nitrogen 49 mg/dL (8-23); Calcium 8.1 mg/dL (8.6-10.3); Carbon Dioxide 22 mEq/L (23-29); Chloride 115 mEq/L (98-107); Globulin 2.1 g/dL (2.4-3.5); Glucose 107 mg/dL (70-105); Magnesium 1.8 mg/dL (1.6-2.6); Osmolality,Calculated 309 (280-300); Phosphorous 2.9 mg/dL (2.7-4.5); Potassium 4.3 mEq/L (3.5-5.1); Sodium 143 mEq/L (136-145); Total Protein 5.7 g/dL (6.4-8.9); eGFR For African Americans > 60 (> 60); eGFR For Non-African Americans 51 (> 60)
[2021-04-11] MEDS: Pantoprazole 40 MG in 0.9 % Sodium Chloride Mini Bag 100 ML IVC SCH ×4 (05:00→21:24)
[2021-04-11 09:58] LABS: Hematocrit 26.5 % (37.5-50.1); Hemoglobin 8.7 g/dL (12.9-16.9)
[2021-04-11 17:27] LABS: Hematocrit 25.5 % (37.5-50.1); Hemoglobin 8.3 g/dL (12.9-16.9)
[2021-04-11 23:16] LABS: Hematocrit 25.6 % (37.5-50.1); Hemoglobin 8.3 g/dL (12.9-16.9)
[2021-04-11 23:52] LABS: BUN/Creatinine Ratio 24 (6-26); Blood Urea Nitrogen 33 mg/dL (8-23); Carbon Dioxide 23 mEq/L (23-29); Chloride 115 mEq/L (98-107); Glucose 82 mg/dL (70-105); Osmolality,Calculated 302 (280-300); Potassium 3.8 mEq/L (3.5-5.1); Sodium 143 mEq/L (136-145); eGFR For African Americans > 60 (> 60); eGFR For Non-African Americans 51 (> 60)
[2021-04-12] MEDS: Pantoprazole 40 MG in 0.9 % Sodium Chloride Mini Bag 100 ML IVC SCH ×4 (02:25→21:35)
[2021-04-12 03:57] LABS: Basophils % 0.5 %; Eosinophils # 0.2 K/mcL (0.0-0.6); Eosinophils % 1.8 %; Hematocrit 24.6 % (37.5-50.1); Hemoglobin 8.1 g/dL (12.9-16.9); Immature Granulocytes % 0.2 % (0-4); Lymphocytes # 1.9 K/mcL (0.6-4.6); Lymphocytes % 22.8 %; Mean Corpuscular HGB Conc 32.9 g/dL (31.6-35.5); Mean Corpuscular Hemoglobin 31.4 pg (28.0-33.3); Mean Corpuscular Volume 95.3 fL (83.0-100.0); Mean Platelet Volume 10.1 fL (9.4-12.4); Monocytes # 0.8 K/mcL (0.0-1.3); Neutrophils # 5.6 K/mcL (1.6-8.9); Platelet Count 132 K/mcL (140-400); Red Blood Count 2.58 M/mcL (4.19-5.50); Red Cell Distribution Width 15.9 % (11.5-14.5); Segmented Neutrophils % 65.7 %; White Blood Count 8.5 K/mcL (4.3-11.1)
[2021-04-12 04:04] LABS: VBG Ionized Calcium 1.21 mmol/L (1.15-1.35)
[2021-04-12 04:16] LABS: BUN/Creatinine Ratio 22 (6-26); Blood Urea Nitrogen 30 mg/dL (8-23); Carbon Dioxide 24 mEq/L (23-29); Chloride 116 mEq/L (98-107); Glucose 90 mg/dL (70-105); Osmolality,Calculated 300 (280-300); Phosphorous 1.9 mg/dL (2.7-4.5); Potassium 3.7 mEq/L (3.5-5.1); Sodium 142 mEq/L (136-145); eGFR For African Americans > 60 (> 60); eGFR For Non-African Americans 52 (> 60)
[2021-04-12] MEDS ORDERED: Acetaminophen 325 MG TABLET PO PRN (11:21)
[2021-04-12] MEDS ORDERED: Ondansetron 4 MG/2 ML VIAL IVP PRN (11:21)
[2021-04-12] MEDS ORDERED: *HR* HYDROmorphone (PF) 1 MG/ML SYRINGE IVP PRN (11:21)
[2021-04-12] MEDS ORDERED: Naloxone 0.4 MG/ML INJ IVP PRN (11:21)
[2021-04-12 11:22] LABS: Hematocrit 25.3 % (37.5-50.1); Hemoglobin 8.1 g/dL (12.9-16.9)
[2021-04-12 19:33] LABS: Hematocrit 25.4 % (37.5-50.1); Hemoglobin 8.3 g/dL (12.9-16.9)
[2021-04-12] MEDS: Budesonide/Formoterol 160/4.5 1 PUFF INH IH SCH (19:33)
[2021-04-12 20:43] LABS: BUN/Creatinine Ratio 18 (6-26); Blood Urea Nitrogen 22 mg/dL (8-23); Carbon Dioxide 21 mEq/L (23-29); Chloride 113 mEq/L (98-107); Glucose 102 mg/dL (70-105); Osmolality,Calculated 294 (280-300); Potassium 3.8 mEq/L (3.5-5.1); Sodium 140 mEq/L (136-145); eGFR For African Americans > 60 (> 60); eGFR For Non-African Americans 58 (> 60)
[2021-04-13 01:54] LABS: Basophils # 0.1 K/mcL (0.0-0.2); Basophils % 0.9 %; Eosinophils # 0.3 K/mcL (0.0-0.6); Hematocrit 24.8 % (37.5-50.1); Hemoglobin 8.2 g/dL (12.9-16.9); Immature Granulocytes % 0.2 % (0-4); Lymphocytes # 1.8 K/mcL (0.6-4.6); Lymphocytes % 27.1 %; Mean Corpuscular HGB Conc 33.1 g/dL (31.6-35.5); Mean Corpuscular Hemoglobin 31.3 pg (28.0-33.3); Mean Corpuscular Volume 94.7 fL (83.0-100.0); Mean Platelet Volume 9.8 fL (9.4-12.4); Monocytes # 0.7 K/mcL (0.0-1.3); Monocytes % 10.3 %; Neutrophils # 3.7 K/mcL (1.6-8.9); Platelet Count 144 K/mcL (140-400); Red Blood Count 2.62 M/mcL (4.19-5.50); Red Cell Distribution Width 15.2 % (11.5-14.5); Segmented Neutrophils % 56.5 %; White Blood Count 6.6 K/mcL (4.3-11.1)
[2021-04-13 01:56] LABS: VBG Ionized Calcium 1.12 mmol/L (1.15-1.35)
[2021-04-13 02:13] LABS: Magnesium 1.8 mg/dL (1.6-2.6); Phosphorous 2.8 mg/dL (2.7-4.5)
[2021-04-13] MEDS: Pantoprazole 40 MG in 0.9 % Sodium Chloride Mini Bag 100 ML IVC SCH ×7 (03:04→23:18)
[2021-04-13 06:38] LABS: Hematocrit 26.6 % (37.5-50.1); Hemoglobin 8.8 g/dL (12.9-16.9)
[2021-04-13] MEDS: Budesonide/Formoterol 160/4.5 1 PUFF INH IH SCH ×2 (07:38→21:44)
[2021-04-13 10:38] LABS: BUN/Creatinine Ratio 13 (6-26); Blood Urea Nitrogen 15 mg/dL (8-23); Calcium 8.4 mg/dL (8.6-10.3); Carbon Dioxide 22 mEq/L (23-29); Chloride 111 mEq/L (98-107); Glucose 105 mg/dL (70-105); Osmolality,Calculated 291 (280-300); Potassium 3.9 mEq/L (3.5-5.1); Sodium 140 mEq/L (136-145); eGFR For African Americans > 60 (> 60); eGFR For Non-African Americans > 60 (> 60)
[2021-04-13] MEDS: Azithromycin 250 MG TABLET PO SCH (16:57)
[2021-04-13 18:11] LABS: Hematocrit 25.5 % (37.5-50.1); Hemoglobin 8.4 g/dL (12.9-16.9)
[2021-04-13] MEDS: Ipratropium/Albuterol Neb 3 ML IH SCH ×2 (20:05→21:44)
[2021-04-14 01:35] LABS: Basophils % 0.7 %; Eosinophils # 0.4 K/mcL (0.0-0.6); Eosinophils % 7.3 %; Hematocrit 25.3 % (37.5-50.1); Hemoglobin 8.3 g/dL (12.9-16.9); Immature Granulocytes % 0.2 % (0-4); Lymphocytes # 1.5 K/mcL (0.6-4.6); Lymphocytes % 25.4 %; Mean Corpuscular HGB Conc 32.8 g/dL (31.6-35.5); Mean Corpuscular Hemoglobin 31.1 pg (28.0-33.3); Mean Corpuscular Volume 94.8 fL (83.0-100.0); Mean Platelet Volume 10.1 fL (9.4-12.4); Monocytes # 0.6 K/mcL (0.0-1.3); Monocytes % 9.7 %; Neutrophils # 3.3 K/mcL (1.6-8.9); Platelet Count 162 K/mcL (140-400); Red Blood Count 2.67 M/mcL (4.19-5.50); Red Cell Distribution Width 14.5 % (11.5-14.5); Segmented Neutrophils % 56.7 %; White Blood Count 5.8 K/mcL (4.3-11.1)
[2021-04-14 01:57] LABS: BUN/Creatinine Ratio 10 (6-26); Blood Urea Nitrogen 13 mg/dL (8-23); Calcium 8.3 mg/dL (8.6-10.3); Carbon Dioxide 23 mEq/L (23-29); Chloride 113 mEq/L (98-107); Glucose 99 mg/dL (70-105); Iron 36 mcg/dL (65-175); Magnesium 1.7 mg/dL (1.6-2.6); Osmolality,Calculated 292 (280-300); Phosphorous 2.6 mg/dL (2.7-4.5); Potassium 3.8 mEq/L (3.5-5.1); Sodium 141 mEq/L (136-145); eGFR For African Americans > 60 (> 60); eGFR For Non-African Americans 57 (> 60)
[2021-04-14 02:16] LABS: Ferritin 232 ng/mL (20-250)
[2021-04-14 02:22] LABS: Folate > 22.3 ng/mL (3.0-16.0); Vitamin B12 > 1500 pg/mL (250-1100)
[2021-04-14 03:04] LABS: % Iron Saturation 12 % (20-55); Transferrin 209 mg/dL (203-362)
[2021-04-14] MEDS: Ipratropium/Albuterol Neb 3 ML IH SCH ×4 (03:52→21:58)
[2021-04-14] MEDS: Pantoprazole 40 MG in 0.9 % Sodium Chloride Mini Bag 100 ML IVC SCH (04:53)
[2021-04-14 06:16] LABS: Hematocrit 26.5 % (37.5-50.1); Hemoglobin 8.7 g/dL (12.9-16.9)
[2021-04-14] MEDS ORDERED: Iron Sucrose Complex 400 MG in 0.9 % Sodium Chloride 250 ML IVPB ONE (07:20)
[2021-04-14] MEDS: Cholecalciferol (D-3) 1,000 UNIT (25MCG) TABLET PO SCH (08:06)
[2021-04-14] MEDS: Loratadine 10 MG TABLET PO SCH (08:06)
[2021-04-14] MEDS: Azithromycin 250 MG TABLET PO SCH (08:07)
[2021-04-14] MEDS: BuPROPion XL (24 HR) 150 MG TABLET PO SCH (08:08)
[2021-04-14] MEDS: Finasteride 5 MG TABLET PO SCH (08:11)
[2021-04-14] MEDS: Calcium Gluconate 1gm/50mL 1 GM/50 ML BAG IVPB SCH ×2 (08:32→10:36)
[2021-04-14] MEDS ORDERED: Isosorbide MONOnitrate (24 HR) 30 MG TAB.ER.24H PO SCH ×2 (09:00)
[2021-04-14] MEDS ORDERED: Melatonin 3 MG TABLET PO PRN (09:16)
[2021-04-14] MEDS: Budesonide/Formoterol 160/4.5 1 PUFF INH IH SCH ×2 (10:45→21:58)
[2021-04-14] MEDS: Aspirin Enteric Coated 81 MG Tablet PO SCH (11:53)
[2021-04-14] MEDS ORDERED: Aspirin Enteric Coated 81 MG Tablet PO SCH (16:00)
[2021-04-14 18:31] LABS: Hematocrit 23.8 % (37.5-50.1); Hemoglobin 7.8 g/dL (12.9-16.9)
[2021-04-14 23:14] LABS: Hematocrit 25.6 % (37.5-50.1); Hemoglobin 8.2 g/dL (12.9-16.9)
[2021-04-15 01:39] LABS: VBG Ionized Calcium 1.19 mmol/L (1.15-1.35)
[2021-04-15 01:49] LABS: Basophils # 0.1 K/mcL (0.0-0.2); Basophils % 0.7 %; Eosinophils # 0.5 K/mcL (0.0-0.6); Eosinophils % 7.2 %; Hematocrit 25.6 % (37.5-50.1); Hemoglobin 8.3 g/dL (12.9-16.9); Immature Granulocytes % 0.7 % (0-4); Lymphocytes # 1.2 K/mcL (0.6-4.6); Lymphocytes % 16.5 %; Mean Corpuscular HGB Conc 32.4 g/dL (31.6-35.5); Mean Corpuscular Hemoglobin 31.1 pg (28.0-33.3); Mean Corpuscular Volume 95.9 fL (83.0-100.0); Monocytes # 0.8 K/mcL (0.0-1.3); Monocytes % 10.7 %; Neutrophils # 4.8 K/mcL (1.6-8.9); Nucleated Red Blood Cells 0.3 /100 WBC (0); Platelet Count 194 K/mcL (140-400); Red Blood Count 2.67 M/mcL (4.19-5.50); Red Cell Distribution Width 14.9 % (11.5-14.5); Segmented Neutrophils % 64.2 %; White Blood Count 7.5 K/mcL (4.3-11.1)
[2021-04-15 02:06] LABS: BUN/Creatinine Ratio 11 (6-26); Blood Urea Nitrogen 14 mg/dL (8-23); Calcium 8.4 mg/dL (8.6-10.3); Carbon Dioxide 23 mEq/L (23-29); Chloride 110 mEq/L (98-107); Glucose 108 mg/dL (70-105); Magnesium 1.9 mg/dL (1.6-2.6); Osmolality,Calculated 293 (280-300); Phosphorous 2.8 mg/dL (2.7-4.5); Potassium 3.6 mEq/L (3.5-5.1); Sodium 141 mEq/L (136-145); eGFR For African Americans > 60 (> 60); eGFR For Non-African Americans 53 (> 60)
[2021-04-15] MEDS: Ipratropium/Albuterol Neb 3 ML IH SCH ×2 (04:00→10:26)
[2021-04-15 07:44] LABS: Hematocrit 25.4 % (37.5-50.1); Hemoglobin 8.2 g/dL (12.9-16.9)
[2021-04-15] MEDS: BuPROPion XL (24 HR) 150 MG TABLET PO SCH (08:18)
[2021-04-15] MEDS: Cholecalciferol (D-3) 1,000 UNIT (25MCG) TABLET PO SCH (08:18)
[2021-04-15] MEDS: Azithromycin 250 MG TABLET PO SCH (08:19)
[2021-04-15] MEDS: Loratadine 10 MG TABLET PO SCH (08:19)
[2021-04-15] MEDS: Aspirin Enteric Coated 81 MG Tablet PO SCH (08:19)
[2021-04-15] MEDS: Finasteride 5 MG TABLET PO SCH (08:19)
[2021-04-15] MEDS ORDERED: Multivit/Ca/Min/Fe/FA 1 TAB TABLET PO SCH (09:00)
[2021-04-15] MEDS: Calcium Gluconate 1gm/50mL 1 GM/50 ML BAG IVPB SCH ×2 (09:10→10:42)
[2021-04-15] MEDS: Budesonide/Formoterol 160/4.5 1 PUFF INH IH SCH (10:26)
[2021-04-15 10:52] LABS: Hematocrit 27.1 % (37.5-50.1); Hemoglobin 9.1 g/dL (12.9-16.9)
[2021-04-15 11:25] VITALS: BP 103/72; PULSE 95; TEMP 98.5; O2SAT 92
== END 2021-04-15 12:58 | disposition home or self-care (01) | DRG 368 ==
LOC: ICNU 08:56 → EMEROOARM 08:56 → ICNU 12:41 → SUATTDRO 17:22 → CDU 04-12 09:54 → 2NNU 04-12 14:52
PROVIDERS: ADMIT Pediatrics; ATTEND Internal Medicine